=== PATIENT | female | born 1960 | race African-American/Black ===

== ENCOUNTER 2016-10-05 10:15 | Inpatient (IN) | payer MEDICAID ==
[~2016-10-05] VITALS: Ht 165.1 cm; Wt 63.1 kg
--- NOTE | 2016-10-05 10:15 | NUR ---
PT BIB BLS TO OF1.
[2016-10-05 10:18] VITALS: BP 114/68
--- NOTE | 2016-10-05 10:20 | NUR ---
Patient being evaluated by physician.
--- NOTE | 2016-10-05 10:25 | NUR ---
[place] [employer] AT BEDSIDE.
--- NOTE | 2016-10-05 10:26 | NUR ---
Juan Manuel jacques in [facility] - 10/05/16 at 1027 by MEDSANDRAV PT BIB BLS TO OF1.
--- NOTE | 2016-10-05 10:43 | NUR ---
PATIENT TO ER BED 6.
[2016-10-05] MEDS ORDERED: ONDANSETRON 4 MG/2 ML VIAL IVP ONE (10:55)
[2016-10-05] MEDS ORDERED: ACETAMINOPHEN 325 MG TAB PO ONE (10:55)
--- NOTE | 2016-10-05 10:56 | NUR ---
55 /F BIBA FROM FIELD FOR HEADACHE FOUND PARTIALLY CLOTHED ON STREET.PATIENT PT DENIES N/V/D; SKIN IS PINK/WARM/DRY; AAOX4 WITH EVEN AND STEADY GAIT; LUNGS CLEAR BL; HR EVEN AND REGULAR; PT DENIES ANY FEVER, CP, SOB, OR COUGH AT THIS TIME; PATIENT STATES PAIN OF 4/10 AT THIS TIME; VSS; PATIENT POSITIONED FOR COMFORT; HOB ELEVATED; BEDRAILS UP X2; BED DOWN. ER MADE AWARE OF PT STATUS. Addendum: 10/05/16 at 1215 by [email or web address] PT 5150 ON HOLD BY [place]
[2016-10-05] MEDS ORDERED: ACETAMINOPHEN 325 MG TAB ONE (10:59)
--- NOTE | 2016-10-05 11:07 | NUR ---
Juan Manuel jacques in [facility] - 10/05/16 at 1322 by MED1 PT REFUSED IV & MED iv. NOTIFIED ER MD DR VAUGHN.
[2016-10-05] MEDS: NACL 0.9% 1,000 ML IV SCH ×2 (11:27→13:12)
[2016-10-05] MEDS ORDERED: POTASSIUM CHL 40 MEQ/ D5-1/2NS 1,000 ML IV ONE ×2 (13:40→15:40)
[2016-10-05] MEDS ORDERED: NACL 0.9% 1,000 ML IV SCH (15:14)
[2016-10-05] MEDS ORDERED: ONDANSETRON 4 MG/2 ML VIAL IVP PRN (15:15)
[2016-10-05] MEDS ORDERED: POTASSIUM CHLORIDE 10 MEQ TABER PO SCH (15:40)
[2016-10-05] MEDS ORDERED: LEVOFLOXACIN 250 MG/D5 PREMIX 50 ML IV ONE (15:45)
--- NOTE | 2016-10-05 16:00 | NUR ---
CALLED REPORT TO CHARGE NURSE LORENA ICU
[2016-10-05] MEDS ORDERED: NACL 0.9% 1,000 ML IV ONE (16:05)
--- NOTE | 2016-10-05 16:05 | NUR ---
Patient will be admitted to [facility]. Admited to ICU. Will go to room5. Belongings list completed. Report to CHARGE NURSE LORENA.
--- NOTE | 2016-10-05 16:50 | NUR ---
SHE IV ON RT AC INFUSE D5 .45NS WITH 40 MEQ KCL AT 100ML/HR. SHE ON ROOM AIR O2 SAT 96%HER HAND AND FEET IS BRIAN DIRTY, C/O COLD.
--- NOTE | 2016-10-05 16:50 | NUR ---
RECEIVED FROM ER PT IS AWAKE VERBAL ABUSIVE, SKIN DRY AND WARM INTACT I
[2016-10-05 17:00] VITALS: BP 117/67
--- NOTE | 2016-10-05 17:00 | NUR ---
SPONGE BATH GIVEN , WARM BLANKET GIVEN, C/O HUNGRY WATER GIVE ABLE TO DRINK.
[2016-10-05] MEDS ORDERED: QUEtiapine FUMARATE 25 MG TAB ONE (17:14)
--- NOTE | 2016-10-05 17:30 | NUR ---
PT SLEEPING , REPORT GIVE TO ANTWAN KIMBALL.
--- NOTE | 2016-10-05 17:30 | NUR ---
DINNER TOOK ABOUT 40% FROM [facility].
--- NOTE | 2016-10-05 17:30 | NUR ---
SEEN BY DR. CRAIG , PT TO CONTINUE TO ADM . TO PSY FACILLITY.
[2016-10-05] MEDS ORDERED: cefTRIAXone 1,000 MG VIAL ONE (17:52)
[2016-10-05] MEDS: LORazepam 2 MG/ML VIAL IVP PRN (18:06)
--- NOTE | 2016-10-05 18:07 | NUR ---
SHE BECOME AGITATE AND VERBAL ABUSIVE. ATIVAN GIVEN ORDERED.
[2016-10-05 20:00] VITALS: BP 93/56
--- NOTE | 2016-10-05 20:00 | NUR ---
RECEIVED PT IS BEDREST WITH BLANKET COVERED OVER HER HEAD, RESPONDING TO VERBAL , FOLLOW COMMAND , ASKING FOR BEDPAN VOIDED 500 ML, DENIES DISCOMFORT OR PAIN, DINNER TRAY AT BEDSIDE OFFER HELP FOR DINNER, PT REFUSED WANT COFFEE ONLY, COFFEE SERVE CARLOS. WELL NO N/V ,MONITOR SR HR 60, ASKING WARM BLANKET GIVEN REQUEST
[2016-10-05] MEDS ORDERED: ZOLPIDEM 5 MG TAB PO SCH (20:05)
--- NOTE | 2016-10-05 21:05 | NUR ---
K2.7 DR CORDOVA NOTIFIED ,WILL ORDER MEDS. WAITING FOR ORDER.
[2016-10-05] MEDS ORDERED: POTASSIUM CHLORIDE 40 MEQ, LIDOCAINE 1% 25 MG in NACL 0.9% 250 ML IV SCH (21:10)
--- NOTE | 2016-10-05 21:30 | NUR ---
CALLED DR CORDOVA BACK FOR KCL WITH LIDOCAINE UN ABLE TO GIVE TONIGHT , NO PHARMACY MIX MEDICATION ,HAS PREMIX POTASSIUM , SEE ORDER.
[2016-10-05] MEDS ORDERED: KCL 20 MEQ/WATER INJ PREMIX 200 ML IV SCH (21:35)
[2016-10-05 22:00] VITALS: BP 107/74
--- NOTE | 2016-10-05 22:21 | NUR ---
K-RIDER WAS START IT ORDER.
[2016-10-05] MEDS: ACETAMINOPHEN 325 MG TAB PO PRN (23:00)
--- NOTE | 2016-10-05 23:28 | NUR ---
PT IS AWAKE, AGITATION AND UN CO OPERATED PULLED ALL MONITOR EKG LEAD OUT AND IV OUT , K-RIDER IS NOT FINISH , PT REFUSED TO PUT IV BACK , DR CORDOVA NOTIFIED
[2016-10-05] MEDS ORDERED: POTASSIUM CHLORIDE 10 MEQ TABER PO ONE (23:30)
--- NOTE | 2016-10-05 23:45 | NUR ---
TOOK 40 MEQ K-DUR , STILL UN CO OPERATED
--- NOTE | 2016-10-06 00:25 | NUR ---
PT HAD MOOD SWING , SOMETIME GOOD MOOD WITH REQUEST THING SHE WANT IT, HAD BAD WORD AND HIT NURSE IF SHE DO NOT WANT IT AFTER TYLENOL SLEPT WITH LININ COVER HER HEAD,STILL REFUSED IV AND MONITOR.
--- NOTE | 2016-10-06 01:20 | NUR ---
VERY AGITATION AND RESTLESS, PULL ALL LINEN OUT AND GET OUT OF THE BED ,SECURITY AND SUPERVISOR ANODIZING IS AT BEDSIDE , PT WALKED AROUND THE BED UN ABLE INSERT IV FOR MEDS , DR CORDOVA NOTIFIED , WILL CHANGE MEDS TO IM
[2016-10-06] MEDS: LORazepam 2 MG/ML VIAL IVP PRN (01:43)
--- NOTE | 2016-10-06 01:45 | NUR ---
AFTER DISCUSSION WITH DR CORDOVA PT REFUSED IV AND UN ABLE GIVE MEDS VIA IV , SHE WILL CHANGE TO IM, SEE ORDER,
[2016-10-06] MEDS: LORazepam 2 MG/ML VIAL IM/IVP PRN ×2 (03:06→19:54)
--- NOTE | 2016-10-06 04:00 | NUR ---
AFTER MEDICATION SLEPT 1.40 MIN ,AWAKE , OUT OF THE BED , URINE ON THE FLOOR, ASSISTED AND CLEAR HER , HELP BACK TO THE BED, C/O HEADACHE .WANT TYLENOL
[2016-10-06] MEDS: ACETAMINOPHEN 325 MG TAB PO PRN ×3 (04:13→21:23)
--- NOTE | 2016-10-06 04:15 | NUR ---
TYLENOL GIVEN FOR HEADACHE
--- NOTE | 2016-10-06 04:40 | NUR ---
OUT OF THE BED AGAIN , HAD BM ON THE FLOOR, PT IS ASKING FOR SHOWER, SHE REMOVED SHEET BED EVERY THING THROUGH ON THE FLOOR THIS TIME # 5 FOR TONIGHT, HELP PT BACK TO THE BED , GIVE COMPLETE SPONGE BATH , ALL BED LINEN CHANGE AGAIN, WARM BLANKET GIVEN
[2016-10-06] MEDS: MORPHINE SULFATE 2 MG/ML SYR IVP PRN ×2 (04:50→15:57)
[2016-10-06] MEDS ORDERED: KETOROLAC 30 MG/ML VIAL IM PRN (05:55)
--- NOTE | 2016-10-06 06:02 | NUR ---
CHANGE POSITION BY HERSELF, LININ COVERED OVER HEAD AND RESTING QUIET NO DISTRESS
--- NOTE | 2016-10-06 06:19 | NUR ---
X-RAY WAS HERE WANT TO DO CHEST X-RAY, PT REFUSED
--- NOTE | 2016-10-06 06:25 | NUR ---
AWAKE AND REPOSITION , SHE PUT HER 1 DOLLAR BILL IN HER VAGINA AREA, ASKING PT WHY SHE PUT HER MONEY IN THERE, SHE TOLD SHE DID NOT HAD POCKET
--- NOTE | 2016-10-06 06:50 | NUR ---
AWAKE VOIDED IN THE BED , GET OUT OF THE BED ,REMOVED ALL LINEN THROUGH TO THE FLOOR AGAIN, ALL BED LINEN CHANGE AGAIN.HELP BACK TO THE BED AND RESTING NOW.
--- NOTE | 2016-10-06 07:30 | NUR ---
RECEIVED REPORT FROM ANTWAN RN, PT. SLEEPING AT THE TIME. SHE HAS NO IV ACCESS AT THE TIME, SKIN DRY AND WARM TO TOUCH, ON ROOM AIR . SHE PULL OUT ALL MONITOR LEAD AND O2 SENSOR REFUSE TO HAVE BP CLUB ON.
[2016-10-06] MEDS ORDERED: LORazepam 1 MG TAB PO SCH (08:40)
--- NOTE | 2016-10-06 08:45 | NUR ---
REFUSED BREAKFAST BUT DRINK 3 CUPS OF COFFEE AN MILK REFUSE TO HAVE IV RESTARTED.
[2016-10-06] MEDS ORDERED: QUEtiapine FUMARATE 25 MG TAB PO SCH (09:00)
[2016-10-06 09:27] VITALS: BP 118/74
--- NOTE | 2016-10-06 09:45 | NUR ---
PULL OUT HER WRIST BAND REFUSE IV RESTART AND BLOOD DROWN.
--- NOTE | 2016-10-06 10:20 | NUR ---
ADDITIONAL MEDICAL FAX TO DELANEY AT [facility] IN [place]
[2016-10-06] MEDS ORDERED: ZIPRASIDONE 40 MG CAP PO PRN (10:40)
--- NOTE | 2016-10-06 10:45 | NUR ---
SEEN BY DR. CORDOVA AT BEDSIDE ORDER RECEIVED.
[2016-10-06] MEDS ORDERED: risperiDONE 1 MG TAB PO PRN (11:10)
--- NOTE | 2016-10-06 13:20 | NUR ---
PT. GETTING RESTLESS GET UP CHIEF COMPLIANCE OFFICER BED ANO UNDRESS HER SELF REMOVEED ALL HER BED SHEET, MEDICATION GAVE IT ORDERED.
--- NOTE | 2016-10-06 13:34 | NUR ---
PT SLEEPING IN BED QUIETLY,
[2016-10-06] MEDS ORDERED: LORazepam 1 MG TAB PO PRN (15:15)
[2016-10-06] MEDS: LORazepam 1 MG TAB PO PRN (15:30)
--- NOTE | 2016-10-06 15:30 | NUR ---
PT AGITATED YELLING AND SCREAMING GETTING OUT OF BED ATTIVAN 1MG PO GIVEN ORDERED
--- NOTE | 2016-10-06 15:40 | NUR ---
PT. CONTINUE BEING AGGRESSIVE VERBALLY AND PHYSICALLY HOUSE SUPP AND SECURITY AT BEDSIDE, MATILDA SIDDIQUI WAS CALLED SOFT WRIST RESTRAIN WAS ORDERED IF NEEDED PT. CALM DOWN AND RESTRAIN WAS HOLD.
--- NOTE | 2016-10-06 15:57 | NUR ---
[PT RESTLESS AND AGITATED UNDRESS HER SELF TRY TO PULL OUT THE IV, MEDICATION GIVEN ORDERE.
--- NOTE | 2016-10-06 16:00 | NUR ---
ABLE TO STARTED THE IV ON RT HAND AND IV MED. GIVEN,
--- NOTE | 2016-10-06 18:00 | NUR ---
PT REFUSED TO THE EKG LEAD AND BP CLUB ,
--- NOTE | 2016-10-06 19:15 | NUR ---
PT SLEEPING . REPORT GIVE TO ANTWAN KIMBALL,
--- NOTE | 2016-10-06 19:45 | NUR ---
RECEIVED PT WALKED AROUND HER BED WITHOUT GROWN , AGITATION TRY TO PULL SALINE LOCH RT ARM , ASKING COFFEE , TOLD PT , DO NOT REMOVED NEEDLE OUT ,I WILL RE TAPE AFTER I WILL GIVE YOU COFFEE, PT IS AGREE , HELP BACK TO THE BED , HAD GROWN ON, WILL GIVE ATIVAN ORDER.MONITOR APPLIED ONCE THEN SHE REMOVED IT OUT, MONITOR SHOW SR HR 78 ,BP129/82,
--- NOTE | 2016-10-06 20:18 | NUR ---
RESTING QUIET AFTER ATIVAN GIVEN.
[2016-10-06 20:35] VITALS: BP 129/82
--- NOTE | 2016-10-06 21:47 | NUR ---
ASSISTED TO BED SIDE COMMODE VOIDED 500 ML, ASKING FOR COFFEE AGAIN SERVE NEED, C/O HEADACHE , TYLENOL GIVEN
--- NOTE | 2016-10-06 22:01 | NUR ---
AGITATION, REFUSED MONITOR REMOVED SALINE LOCK, ASKING FOR BLANKET COVER AGAIN
[2016-10-07] MEDS: LORazepam 1 MG TAB PO PRN ×3 (00:24→15:40)
--- NOTE | 2016-10-07 01:00 | NUR ---
AWAKE , ASKING HELP FOR REPOSITION FOR BED AND BLANKET, SLIGHT RESTLESS, ASKING HOW THEY WILL HOLD HER, ATIVAN PO GIVEN
--- NOTE | 2016-10-07 03:00 | NUR ---
WET BED ,COMPLETE GIVEN, AFTER BATH ASKIN FOR TYLENOL C/O HEADACHE, ALL BED LINEN CHANGE. NO DISTRESS
[2016-10-07] MEDS: ACETAMINOPHEN 325 MG TAB PO PRN (03:10)
[2016-10-07 05:29] VITALS: BP 105/64
--- NOTE | 2016-10-07 05:37 | NUR ---
WET IN THE BED, COMPLETE BED CLEAN AND AM CARE GIVEN, ASKING FOR COFFEE AGAIN.
[2016-10-07] MEDS: LORazepam 2 MG/ML VIAL IM/IVP PRN (05:57)
--- NOTE | 2016-10-07 06:00 | NUR ---
GET OUT OF THE BED LOOK FOR PANT, SHIRT , SHE WANT TO GO HOME, AGITATION AND RESTLESS, ATIVAN IM GIVEN ORDER. HELP BACK TO THE BED, COFFEE SERVE AGAIN RESTING IN THE BED NOW
--- NOTE | 2016-10-07 07:00 | NUR ---
RECEIVED REPORT FROM RN. PT IS ALERT TO HOSPITAL. AGITATION AND COMBATIVENESS NOTED. STATED "I WANT TO GO HOME". PT WAS CALMER AFTER COFFEE WAS GIVEN PER REQUEST. WILL CONTINUE TO MONITOR.
--- NOTE | 2016-10-07 07:45 | NUR ---
DR. CHANG AT BEDSIDE TO SEE PT. NOTIFIED OF PT'S CURRENT CONDITION AND NO IV ACCESS. STATED THAT IT IS FINE FOR NOW AND WILL CHANGE ORDERS ACCORDINGLY.
--- NOTE | 2016-10-07 07:50 | NUR ---
PATIENT HAS BEEN SCREENED AND CATEGORIZED LOW NUTRITION RISK. PATIENT WILL BE SEEN WITHIN 7 DAYS OF ADMISSION. 10/12/[address]
[2016-10-07 08:00] VITALS: BP 121/71
--- NOTE | 2016-10-07 08:00 | NUR ---
PT REFUSED VITAL SIGNS AND PHYSICAL ASSESSMENT. REFUSED X3. STATED "LEAVE ME ALONE, I'M FINE". BECAME AGITATED AND COMBATIVE. MOOD IS CALM WHEN LEFT IN BED. MD AWARE OF CONDITION. ASSISTED PT TO COMMODE X1. URINE IS CLEAR, YELLOW. DENIES ANY PAIN. WILL CONTINUE TO MONITOR
[2016-10-07] MEDS: LEVOFLOXACIN 250 MG TAB PO SCH (08:27)
[2016-10-07] MEDS: QUEtiapine FUMARATE 100 MG TAB PO SCH ×2 (08:28→20:30)
[2016-10-07] MEDS: HYDROcodone/APAP 5/325 MG 1 TAB TAB PO PRN ×2 (08:30→20:30)
--- NOTE | 2016-10-07 08:30 | NUR ---
PT C/O 12/23 HEADACHE. PRN PAIN MEDICATION ORDERED. WILL CONTINUE TO MONITOR Addendum: 10/07/16 at 1103 by Ramakrishna Lees RN C/O 09/23 HEADACHE
--- NOTE | 2016-10-07 09:00 | NUR ---
AT 0830, PT REMOVE BLANKET AND GOWN AND THREW IT ON THE FLOOR. REFUSED TO WEAR GOWN. STATED "I WANT A SHIRT AND PANTS". LOUD VERBALIZATION AND AGITATION NOTED. 1:1 COMMUNICATION PROVIDED. PRN ANTI ANXIETY MEDICATION PROVIDED. DRESSED PT IN GOWN ONCE PT WAS CALM. PT RESTING COMFORTABLY IN BED.
--- NOTE | 2016-10-07 09:45 | NUR ---
PT ROLLED UP A DOLLAR BILL AND INSERTED IT INTO HER VAGINA. ATTEMPT MADE TO PREVENT THAT. ATTEMPT MADE TO EDUCATE PT ON REASONS WHY SHE SHOULD NOT DO THAT. PT BECAME ANGRY AND STATED "IT'S SO I DON'T LOSE IT". WILL CONTINUE TO MONITOR
--- NOTE | 2016-10-07 10:52 | NUR ---
PT SLEEPING COMFORTABLY IN BED. WILL CONTINUE TO MONITOR FOR CHANGE
--- NOTE | 2016-10-07 12:34 | NUR ---
PT REMOVED GOWN AND REMAIN NAKED IN BED. NOTED TO HAVE A WET STEWART AND WET GOWN. TONY CARE PROVIDED. LINEN AND GOWN CHANGED. RESIDENT CONTINUE TO REFUSE HELP WITH GOWN. AT THE MOMENT IS NAKED AND EATING LUNCH.
--- NOTE | 2016-10-07 12:47 | NUR ---
SS NOTE: SENT PT INFORMATION TO [facility], RECEIVED FAX CONFIRMATION
--- NOTE | 2016-10-07 13:00 | NUR ---
SS NOTE: I SPOKE WITH VALERI FROM [place]. SHE STATED THAT PT IS A MISSING PERSON AND A FACILITY THAT SHE LEFT REPORTED HER MISSING BUT THE REPORT DOES NOT SAY WHICH FACILITY. SHE ALSO STATED THAT THEY WILL SEND AN OFFICER TO SEE PT.
--- NOTE | 2016-10-07 14:22 | NUR ---
SS NOTE: RIANNA FLORES FROM [facility], PT'S INFORMATION IS PENDING REVIEW BUT THEY ARE FULL FOR TODAY. Addendum: 10/07/16 at 1705 by Katelynn HERRERA [facility] - [phone]
--- NOTE | 2016-10-07 15:24 | NUR ---
FAXED TO [facility] [phone] PHONE PAULIE [phone]
[2016-10-07] MEDS ORDERED: PROBIOTIC SCREEN 1 EA MISC MC PRN (15:25)
--- NOTE | 2016-10-07 15:35 | NUR ---
SS NOTE: I SPOKE WITH OFFICER KHURRAM FROM [employer]. HE STATED THAT PT WAS A MISSING PERSON BUT SINCE SHE HAS BEEN LOCATED, THEY WILL REMOVE HER FROM THE SYSTEM.
--- NOTE | 2016-10-07 15:45 | NUR ---
INCONTINENT OF URINE. AGITATED. TOOK HOSPITAL GOWN OFF. THREW CHUX ON THE FLOOR. LINENS AND HOSPITAL GOWN CHANGED . REPORT GIVEN TO JIGAR PANDYA.
--- NOTE | 2016-10-07 15:50 | NUR ---
TRANSFERRED TO AR ROOM 110 B PER BED. PT IS AWAKE. CALM AT THIS TIME.
--- NOTE | 2016-10-07 15:53 | NUR ---
SS NOTE: I SPOKE WITH THERAPIST ENA FROM [facility] (PT'S PREVIOUS RESIDENCE). HE STATED THAT PT WENT AWOL FROM THEIR FACILITY ALMOST 4 WEEKS AGO. HE ALSO STATED THAT PT IS CONSERVED WITH THE [facility] OFFICE OF PUBLIC GUARDIAN AND MARIAN RAMIREZ ([phone]) IS HIS PUBLIC GUARDIAN. HE REPORTED THAT WE WOULD HAVE TO FIRST OBTAIN AN AUTHORIZATION TO DETAIL AND TREAT FROM PT'S CONSERVATOR AND THEN CALL [facility] INPT PSYCH UNIT TO SEE IF PT CAN BE TRANSFERRED THERE. I REQUESTED THAT HE SENDS A COPY OF PT'S CONSERVATORSHIP PAPERWORK WELL ADDITIONAL INFORMATION REGARDING PT WHEN SHE WAS AT THEIR FACILITY. REQUESTED INFORMATION RECEIVED, A COPY WAS PLACED IN PT'S CHART. I SPOKE WITH CRANE OILER FOR THE [facility] PUBLIC GUARDIAN'S OFFICE, CIRA. HE STATED THAT PT'S NAME IS CL RIVERA BUT GOES BY CL DANIELS. HE ALSO STATED THAT HE CAN SEND OVER AN AUTHORIZATION TO DETAIN AND TREAT SO THAT WE CAN START THE PROCESS FOR [facility]. RECEIVED AUTH FOR DETAIL AND TREAT FORM FROM THE [facility] OFFICE OF PUBLIC GUARDIAN.
--- NOTE | 2016-10-07 15:56 | NUR ---
SS NOTE: I SPOKE WITH A REHABILITATION SERVICES COUNSELOR FROM [facility]. SHE STATED THAT THEY ONLY ACCEPT PSYCH PTS THROUGH THEIR EMERGENCY ROOM AND DO NOT ACCEPT DIRECT TRANSFERS.
[2016-10-07 16:00] VITALS: BP 128/71
--- NOTE | 2016-10-07 16:00 | NUR ---
PT ARRIVED TO UNIT. SHE IS RESTING IN BED, CLEAN GOWN AND WARM BLANKET WAS PROVIDED. Addendum: 10/07/16 at 1910 by Radha Merida RN PT IS A/OX1, RESTING IN BED, SKIN IS INTACT, NO S/S OF RESPIRATORY DISTRESS OR DISCOMFORT NOTED, ORIENTED PT TO ROOM, DISCUSSED PLAN OF CARE WITH PT, PT UNABLE TO COMPREHEND, CALL LIGHT IS WITHIN REACH, WILL CONTINUE TO MONITOR.
[2016-10-07] MEDS ORDERED: QUETIAPINE FUM100 M1 PO (16:32)
[2016-10-07] MEDS ORDERED: LEVAQUIN250 M1 PO (16:34)
[2016-10-07] MEDS ORDERED: MAGNESIUM OXIDE 400 MG TAB PO SCH (17:00)
--- NOTE | 2016-10-07 17:37 | NUR ---
INFORMED PT THERE WAS A MEDICATION SCHEDULED FOR HER DUE AT THIS TIME, I LET HER KNOW HER MG LEVEL WAS LOW AND DOCTOR HAD PRESCRIBED HER MG, ORAL TABLET, PT REFUSED AND STATED, "LEAVE ME ALONE, DONT WANT ANYTHING."
--- NOTE | 2016-10-07 17:49 | NUR ---
PT REMOVED CHUCKS PAD, GOWN, BRIEF AND VOIDED IN HER BED, ACCOMPANIED PT TO RESTROOM, CHANGED SHEETS, PROVIDED A NEW STEWART FOR BED, BLANKETS AND PROVIDED A NEW CLEAN GOWN, ASSISTED PT BACK INTO BED.
--- NOTE | 2016-10-07 19:11 | NUR ---
ENDORSED PT TO JIGAR DRAKE. FOR CONTINUITY OF CARE, LILIAN HICKS IS SITTING AT PT BEDSIDE, PT STABLE AT THIS TIME.
--- NOTE | 2016-10-07 19:20 | NUR ---
RECEIVED FROM AM RN IN BED SLEEPING. WITH SITTER IN PLACE. NO SOB. NO RESTLESSNESS NOTED. PT. 51:50. NEEDS WILL BE ANTICIPATED AND WILL BE MET.
--- NOTE | 2016-10-07 20:40 | NUR ---
PT. REQUESTED FOR PAIN RELIEVER. ON TOP OF HER VOICE SAYING I NEED SOMETHING FOR PAIN. MEDICATED REQUESTED. STATED HER HEAD HURTS . PROVIDED WITH SNACK. ATE SNACKS AND DRANK JUICE. REDUSED TO HAVE NEW IVF LINE INSERTED.
--- NOTE | 2016-10-07 22:48 | NUR ---
PT. WALKING AROUND THE ROOM AND TAKING ALL HER CLOTHES OFF. ENCOURAGED TO GO BACK TO BED AND SLEEP. PT. STATED I AM NOT SLEEPY AND WANTS TO SMOKE. INFORMED HER THAT WE ARE NOT ALLOWED TO MAKE PT.S SMOKE. PT. PICKING UP THING SFROM FLOOR AND TROWING IT BACK ON THE FLOOR. WALKING AROUND HER ROOM NAKED. WILL KEEP AN EYE. 1:1 SITTER.
[2016-10-07 23:27] VITALS: BP 129/60
--- NOTE | 2016-10-07 23:49 | NUR ---
PT. PROVIDED WITH NEW GOWN AND WARM BLANKET. PT. BACK IN BED AND TRYING TO SLEEP. SITTER 1:1.
--- NOTE | 2016-10-08 02:00 | NUR ---
PT. SLEEPING. SITTER 1:1.
--- NOTE | 2016-10-08 04:07 | NUR ---
BEEN SLEEPING . SITTER 1:1. NEEDS ANTICIPATED AND WILL BE MET.
[2016-10-08] MEDS: LEVOTHYROXINE 0.025 MG TAB PO SCH (06:04)
--- NOTE | 2016-10-08 06:40 | NUR ---
AWAKE AT THIS TIME. ABLE TO TAKE AM MEDICATION. TOLERATED WELL. PROVIDED WITH COFFEE REQUESTED BY PT. WITH 1:1 SITTER.
--- NOTE | 2016-10-08 07:30 | NUR ---
RECEIVED REPORT FROM NIGHT NURSE. PT RESTING IN BED, AOX4, ABLE TO VERBALIZE NEEDS. NO IV ACCESS, MD AWARE. INITIAL ASSESSMENT COMPLETED. NO CP, SOB OR ACUTE DISTRESS. PT DENIES SUICIDAL/HOMICIDAL IDEATIONS. 1:1 SITTER AT BEDSIDE WITH CLOSE MONITORING. SAFETY MEASURES IN PLACE. CALL LIGHT WITHIN REACH. WILL CONTINUE TO MONITOR. DISCUSSED AND REVIEWED PLAN OF CARE WITH PT, PT VERBALIZES UNDERSTANDING.
[2016-10-08 08:00] VITALS: BP 105/64
[2016-10-08] MEDS: LITHIUM CARBONATE 300 MG TAB PO SCH ×2 (08:28→21:09)
[2016-10-08] MEDS: risperiDONE 1 MG TAB PO SCH ×2 (08:28→21:09)
[2016-10-08] MEDS: QUEtiapine FUMARATE 100 MG TAB PO SCH ×2 (08:29→21:09)
[2016-10-08] MEDS: ATORVASTATIN 20 MG TAB PO SCH (08:29)
[2016-10-08] MEDS: LEVOFLOXACIN 250 MG TAB PO SCH (08:30)
[2016-10-08] MEDS: GABAPENTIN 100 MG CAP PO SCH ×3 (08:30→16:40)
--- NOTE | 2016-10-08 08:34 | NUR ---
VSS. ADMINISTERED DUE MEDICATIONS ORDERED WITH EDUCATION, PT TOLERATED WELL. ASSISTED WITH AM CARE, LINEN & GOWN CHANGED. DISCUSSED DC PLAN WITH PT, PT STATES "OKAY"; WILL REINFORCE TEACHING NEEDED; PT RESTING QUIETLY IN BED AT THIS TIME, 1:1 SITTER AT BEDSIDE.
--- NOTE | 2016-10-08 10:28 | NUR ---
CALLED [facility] AND SPOKE WITH EMANUEL. NO BEDS AT PRESENT.
--- NOTE | 2016-10-08 12:23 | NUR ---
NOTE: FAXED PUBLIC GUARDIAN INFO TO [phone] (MARK) Addendum: 10/08/16 at 1226 by Pauline Em FAXED PUBLIC GUARDIAN INFO TO [facility] [phone] (MARK)
--- NOTE | 2016-10-08 12:25 | NUR ---
CM NOTE CONCURRENT REVIEW SENT TO [facility] FAX# [phone] PH# PAULIE [phone]
[2016-10-08] MEDS: ACETAMINOPHEN 325 MG TAB PO PRN (12:39)
[2016-10-08 16:00] VITALS: BP 105/74
--- NOTE | 2016-10-08 16:00 | NUR ---
PT SLEEPING AT THIS TIME. 1:1 SITTER WITH CLOSE MONITORING. SAFETY MEASURES ENSURED. WILL CONTINUE TO MONITOR.
--- NOTE | 2016-10-08 19:25 | NUR ---
CONDITION STABLE, ENDORSED PLAN OF CARE TO FORM SETTER RN.
--- NOTE | 2016-10-08 19:26 | NUR ---
PT. RECEIVED FROM AM RN IN BED SLEEPING. WAKES UP WHEN TOUCHED. SITTER 1;1. ABLE TO VERBALIZE NEEDS IN ITALIAN WELL. NO SOB. NO RESTLESSNESS NOTED. NO PAIN COMPLAINTS AT THIS TIME. NEEDS WILL BE ANTICIPATED AND WILL BE MET. DX. OF PSYCHOSIS.
--- NOTE | 2016-10-08 23:04 | NUR ---
SLEEPING. SITTER 1:1. P.O. MEDICATIONS TAKEN AND PROVIDED WITH SNACK .
[2016-10-09 00:01] VITALS: BP 105/76
[2016-10-09] MEDS: ACETAMINOPHEN 325 MG TAB PO PRN ×3 (00:45→16:44)
--- NOTE | 2016-10-09 01:43 | NUR ---
AWAKE AND WATCHING TV. REFUSED TO GO BACK TO BED. "I AM NOT A BABY". WITH 1:1 SITTER.
--- NOTE | 2016-10-09 03:56 | NUR ---
PT. WENT BACK TO SLEEP. SITTER 1:1.
[2016-10-09] MEDS: LEVOTHYROXINE 0.025 MG TAB PO SCH (05:37)
--- NOTE | 2016-10-09 07:24 | NUR ---
PT. AWAKE AND ALERT. SITTER 1:1 AND ENDORSED TO THE NEXT RN FOR CONTINUITY OF CARE. PROVIDED WITH COFFEE REQUESTED. ABLE TO VERBALIZE SIMPLE NEEDS WELL.
[2016-10-09 08:00] VITALS: BP 101/66
[2016-10-09] MEDS: GABAPENTIN 100 MG CAP PO SCH ×3 (08:32→16:44)
[2016-10-09] MEDS: ATORVASTATIN 20 MG TAB PO SCH (08:32)
[2016-10-09] MEDS: LEVOFLOXACIN 250 MG TAB PO SCH (08:34)
[2016-10-09] MEDS: QUEtiapine FUMARATE 100 MG TAB PO SCH ×2 (08:35→20:49)
[2016-10-09] MEDS: LITHIUM CARBONATE 300 MG TAB PO SCH ×2 (08:35→20:50)
[2016-10-09] MEDS: risperiDONE 1 MG TAB PO SCH ×2 (08:35→20:50)
--- NOTE | 2016-10-09 08:38 | NUR ---
DUE MEDS GIVEN, PT TOLERATED WELL. STILL ON 1:1 SITTER FOR SAFETY. PT WATCHING TV.
--- NOTE | 2016-10-09 09:33 | NUR ---
RECEIVED PT AWAKE AND ON HER BED, NO S/S OF RESPIRATORY DISTRESS, PT CONFUSED BUT ABLE TO VERBALIZED NEEDS WELL. SKIN IS INTACT, NO IV ACCESS. ON 1:1 SITTER FOR SAFETY. CALL LIGHT WITHIN REACH, WILL CONTINUE TO MONITOR. Addendum: 10/09/16 at 0933 by Stella Ramires RN WRONG TIME, RECEIVED PT AT 0725
--- NOTE | 2016-10-09 10:26 | NUR ---
SS NOTE: MESSAGE LEFT FOR PT'S PUBLIC GUARDIANMARIAN REGARDING PSYCH PLACEMENT FOR PT
--- NOTE | 2016-10-09 11:25 | NUR ---
PT AWAKE SITTING QUIETLY ON BED WATCHING TV. STILL ON 1:1 SITTER. WILL CONTINUE TO MONITOR
--- NOTE | 2016-10-09 13:14 | NUR ---
SS NOTE: RIANNA CASTELLANOS FROM [facility], NO FEMALE BEDS AVAILABLE
--- NOTE | 2016-10-09 13:29 | NUR ---
SS NOTE: I SPOKE WITH PT'S PUBLIC GUARDIAN, MARIAN REGARDING PSYCH PLACEMENT FOR PT. SHE STATED THAT SHE WILL VERIFY WITH HER [employer] SALES CONSULTANT AND ALSO WITH PT'S PREVIOUS RESIDENCE ([facility]) THEN CALL ME BACK.
--- NOTE | 2016-10-09 13:59 | NUR ---
PT ASLEEP, NO S/S OF DISTRESS. STILL ON 1:1 SITTER, ALL NEEDS ATTENDED. WILL CONTINUE TO MONITOR
--- NOTE | 2016-10-09 14:01 | NUR ---
FAXED CONCURRENT REVIEW TO [facility] [phone] PHONE PAULIE [phone]
--- NOTE | 2016-10-09 15:10 | NUR ---
SS NOTE: I RECEIVED A CALL BACK FROM PT'S PUBLIC GUARDIAN, MARIAN. SHE STATED THAT SHE SPOKE WITH [facility] (PT'S PREVIOUS RESIDENCE BEFORE GOING AW) AND THEY ARE UNABLE TO ACCEPT PT BACK AT THIS TIME DUE TO PT REQUIRING STABILIZATION ON MEDICATION. SHE ALSO STATED THAT PT HAS BEEN TO [facility] (C: [phone], F: [phone]) AND [facility] (C: [phone], F: [phone]) BEFORE AND TO TRY THOSE FACILITIES. SENT PSYCH PLACEMENT INQUIRIES TO [facility] AND [facility], RECEIVED FAX CONFIRMATION
--- NOTE | 2016-10-09 15:57 | NUR ---
PT ABLE TO AMBULATE AROUND THE ROOM, NO COMPLAINTS AT THIS TIME. WILL CONTINUE TO MONITOR. STILL WITH 1:1 SITTER
[2016-10-09 16:00] VITALS: BP 104/71
--- NOTE | 2016-10-09 17:55 | NUR ---
PT AWAKE EATING DINNER, HAS GOOD APPETITE. STILL ON 1:1 SITTER, CALL LIGHT WITHIN REACH, WILL CONTINUE TO MONITOR
--- NOTE | 2016-10-09 19:22 | NUR ---
RECEIVED REPORT FROM DAY SHIFT NURSE. PT IS AWAKE, NOT IN DISTRESS. ON ROOM AIR, NO S/S OF RESPIRATORY DISTRESS/DISCOMFORT NOTED. PLAN OF CARE DISCUSSED, VERBALIZED UNDERSTANDING. SAFETY MEASURES CHECKED, CALL LIGHT WITH REACH. WILL CONTINUE TO MONITOR.
--- NOTE | 2016-10-09 19:22 | NUR ---
ENDORSED PT TO JIGAR DAO FOR CONTINUITY OF CARE IN STABLE CONDITION
--- NOTE | 2016-10-09 20:50 | NUR ---
DUE MEDS GIVEN. PT TOLERATED WELL.
--- NOTE | 2016-10-09 22:33 | NUR ---
ENDORSED REPORT TO BIPIN FOR CONTINUITY OF CARE. PT IS SLEEPING AT THIS TIME.
--- NOTE | 2016-10-09 22:34 | NUR ---
RECD. PATIENT RESTING IN BED, AWAKE, A/OX1. LAUGHING ALONE, CLOSED EYES IF SLEEPING, THEN WOKE UP AND DRINK COFFEE IN THE BEDSIDE TABLE. ANSWERS QUESTIONS DIFFERENTLY FROM THE TOPIC. DENIES PAIN 0/10. INTRODUCED SELF TO PATIENT NEW NURSE AND NEW SITTER. SEEMS NOT TO MIND. NO APPEARANCE OF PAIN NOTED 0/10. WILL CONTINUE TO MONITOR PATIENT'S BEHAVIOR.
--- NOTE | 2016-10-09 22:51 | NUR ---
AMBULATED TO BR TO VOID, SINGS AND TALK LOUDLY WHILE ENTERING BR. GOES TO THE BEDSIDE CABINET AND THROW HER TOOTHBRUSH, TOOTH PASTE AND CLEANSER TO THE TRASH. ADVISED TO GO BACK TO BED AND SLEEP.
--- NOTE | 2016-10-09 23:00 | NUR ---
WENT BACK TO BED AND COVER SELF FROM HEAD TO FOOT WITH BLANKET.
[2016-10-10] VITALS: BP 116/80
--- NOTE | 2016-10-10 01:30 | NUR ---
WOKE UP, AMBULATED TO BR TO VOID. REQUESTED FOR COFFEE . GETS UPSET WHEN INSTRUCTED TO PUT CREAMER AND SUGAR. WASHED FACE IN THE SINK, DRY FACE WITH PAPER TOWEL. REQUESTED LOTION FOR HER HAIR. WENT BACK TO BED AND KEEP ON TALKING TO SELF THEN WATCHED TV.
--- NOTE | 2016-10-10 02:30 | NUR ---
REQUESTED FOR BEDPAN, VOIDED APPROXIMATELY 300 ML OF CLEAR YELLOW URINE.
--- NOTE | 2016-10-10 03:00 | NUR ---
STILL AWAKE, WATCHING TV. TALKING TO SELF, SOMETIMES CLAPPING HANDS.
--- NOTE | 2016-10-10 04:00 | NUR ---
SLEEPING COMFORTABLY IN BED.
--- NOTE | 2016-10-10 05:25 | NUR ---
AWAKE IN BED, WATCHING TV.
--- NOTE | 2016-10-10 05:30 | NUR ---
REFUSED NEW IV INSERTION.
[2016-10-10] MEDS: LEVOTHYROXINE 0.025 MG TAB PO SCH (07:25)
--- NOTE | 2016-10-10 07:30 | NUR ---
CONDITION REMAIN STABLE, NO COMBATIVE BEHAVIOR/AGITATION NOTED DURING SHIFT. NEW SITTER AT THE BEDSIDE. ENDORSED TO JIGAR VELIZ FOR CONTINUITY OF CARE.
--- NOTE | 2016-10-10 07:31 | NUR ---
RECEIVED ON BED AAO WITH PERIODS OF CONFUSION. PLEASANT AND CALM. NO SOB NOTED. NO C/O PAIN AT THIS TIME. PT REFUSED IV, DR ALREADY AWARE. CHEST CLEAR. ABDOMEN SOFT, BOWLE SOUNDS PRESENT. NO EDEMA NOTED. INSTRUCTED PT TO CALL FOR ASSISTANCE, CALL LIGHT WITHIN REACH. PT IS ON 5150 HOLD, WITH 1:1 SITTER AT THE BEDSIDE. WILL CONTINUE TO MONITOR PT'S BEHAVIOR.
--- NOTE | 2016-10-10 08:15 | NUR ---
PT REFUSED VITAL SIGNS TAKEN. PT THROWING THINGS FROM THE BEDSIDE TABLE, STATED TO THE NURSE TO GET OUT OF THE ROOM. NO SIGNS OF PAIN. WILL CONTINUE TO MONITOR.
[2016-10-10] MEDS: GABAPENTIN 100 MG CAP PO SCH ×3 (09:00→17:00)
[2016-10-10 09:15] VITALS: BP 118/80
--- NOTE | 2016-10-10 09:17 | NUR ---
PT ON A GOOD MOOD, LAUGHING WHILE WATCHING TV. ALLOWED RN TO TAKE VITAL SIGNS . NO COMPLAINTS MADE.
--- NOTE | 2016-10-10 09:45 | NUR ---
PT REFUSED SCHEDULED MEDS, STATED TO THE NURSE TO GO AWAY. RISKS AND BENEFITS EXPLAINED TO PT, VERBALIZED PARTIAL UNDERSTANDING. WILL CONTINUE TO MONITOR.
--- NOTE | 2016-10-10 13:28 | NUR ---
SS NOTE: I SPOKE WITH PT'S FORMER THERAPIST, ENA PALACIO ([phone] EXT. [phone]) FROM [facility] REGARDING CHALLENGES WITH PLACEMENT FOR PT. HE STATED THAT HE WILL CONTACT [facility], LORIN WU TO SEE IF SHE CAN PROVIDE ANY ASSISTANCE WITH PLACEMENT FOR PT.
[2016-10-10] MEDS: risperiDONE 1 MG TAB PO SCH ×2 (13:59→20:50)
[2016-10-10] MEDS: QUEtiapine FUMARATE 100 MG TAB PO SCH ×2 (13:59→20:49)
[2016-10-10] MEDS: LITHIUM CARBONATE 300 MG TAB PO SCH ×2 (13:59→20:49)
[2016-10-10] MEDS: ATORVASTATIN 20 MG TAB PO SCH (13:59)
[2016-10-10] MEDS: LEVOFLOXACIN 250 MG TAB PO SCH (14:00)
[2016-10-10] MEDS ORDERED: FERROUS GLUCONATE 324 MG TAB PO SCH ×2 (14:20→15:00)
--- NOTE | 2016-10-10 15:23 | NUR ---
SS NOTE: I SPOKE WITH JESSE IN THE PSYCH ER FOR [facility] ([phone]). HE STATED THAT THE ADMISSION PROCESS STARTS IN THEIR ER AND PT WOULD HAVE TO COME TO THEIR ER TO BE EVALUATED. HE ALSO STATED THAT THEY DO NOT ACCEPT DIRECT ADMITS FROM OTHER HOSPITALS AND THEIR PTS USUALLY GET BROUGHT IN BY PD OR THEIR LOCAL PSYCHIATRIC EMERGENCY TEAM.
[2016-10-10 16:00] VITALS: BP 102/57
[2016-10-10] MEDS: ASCORBIC ACID 500 MG TAB PO SCH (17:00)
--- NOTE | 2016-10-10 17:30 | NUR ---
PT REFUSED MEDS. RISKS AND BENEFITS EXPLAINED. PT VERBALIZED PARTIAL UNDERSTANDING.
--- NOTE | 2016-10-10 19:02 | NUR ---
PT AWAKE. WATCHING TV. NO SOB NOTED. NO COMPLAINTS MADE. WILL ENDORSE TO NEXT SHIFT NURSE FOR CONTINUITY OF CARE.
--- NOTE | 2016-10-10 19:30 | NUR ---
RECEIVED FROM AM RN IN BED AWAKE . ABLE TO VERBALIZE SIMPLE NEEDS. SITTER 1:1. FEBRILE. CALL LIGHT WITH IN REACH. CARE PLANS FOR THE NIGHT DISCUSSED WITH HER. ALERT WITH DISORIENTATION AT TIMES. DX. OF ACUTE PSYCHOSIS.
--- NOTE | 2016-10-10 21:17 | NUR ---
PT. TOOK ALL P.O. MEDICATIONS FOR ME. GOOD AFFECT. PROVIDED WITH SANDWICH AND COFFEE REQUESTED . SITTER 1:1.
--- NOTE | 2016-10-10 23:49 | NUR ---
SLEEPING AT THIS TIME. NO RESTLESSNESS . SITTER :1 ON 1.
[2016-10-11] VITALS: BP 114/62
--- NOTE | 2016-10-11 02:11 | NUR ---
PT. SLEEPING . NO RESTLESSNESS. SITTER 1:1.
[2016-10-11] MEDS: ACETAMINOPHEN 325 MG TAB PO PRN (02:59)
--- NOTE | 2016-10-11 03:09 | NUR ---
WOKE UP AT THIS TIME AND REQUESTED FOR PAIN RELIEVER RT HEADACHE. MEDICATED ORDERED. NOFURTHER COMPLAINTS .
[2016-10-11] MEDS: LEVOTHYROXINE 0.025 MG TAB PO SCH (06:13)
--- NOTE | 2016-10-11 06:35 | NUR ---
AWAKE AT THIS TIME. REQUESTED FOR A CUP OF COFFEE. P.O. MEDICATION FOR A.M. TAKEN. NO UNTOWARD INCIDENT THIS SHIFT. SITTER 1:1.
--- NOTE | 2016-10-11 07:27 | NUR ---
ENDORSED TO THE AM RN FOR CONTINUITY OF CARE. AWAKE AND ALERT . SITTING IN BED. NO COMPLAINTS DONE.
[2016-10-11 08:00] VITALS: BP 113/64
[2016-10-11] MEDS ORDERED: FERROUS GLUCONATE 324 MG TAB PO SCH (08:00)
[2016-10-11] MEDS: ASCORBIC ACID 500 MG TAB PO SCH (08:30)
[2016-10-11] MEDS: GABAPENTIN 100 MG CAP PO SCH ×2 (08:30→12:30)
--- NOTE | 2016-10-11 08:30 | NUR ---
PT FINISHED HER BREAKFAST IN BED. PT IS CALM AND COOPERATIVE WITH MORNING MEDICATIONS. WILL CONTINUE TO MONITOR.
[2016-10-11] MEDS: LEVOFLOXACIN 250 MG TAB PO SCH (08:31)
[2016-10-11] MEDS: LITHIUM CARBONATE 300 MG TAB PO SCH (08:31)
[2016-10-11] MEDS: risperiDONE 1 MG TAB PO SCH (08:32)
[2016-10-11] MEDS: QUEtiapine FUMARATE 100 MG TAB PO SCH (08:32)
[2016-10-11] MEDS: ATORVASTATIN 20 MG TAB PO SCH (08:32)
--- NOTE | 2016-10-11 09:35 | NUR ---
SS NOTE: PER EMANUEL FROM [facility], PT HAS BEEN DECLINED DUE TO DIFFICULTY OF PLACEMENT AND PT IS OUT OF THEIR AREA RADIUS. I REQUESTED TO HAVE THEIR SALES AND SERVICE OFFICER CALL ME TO OBTAIN ADDITIONAL INFORMATION REGARDING THE REASONS THAT THEY ARE DECLINING PT.
--- NOTE | 2016-10-11 11:00 | NUR ---
PT RESTING IN BED. SITTER AT BEDSIDE. WILL CONTINUE TO MONITOR.
--- NOTE | 2016-10-11 12:30 | NUR ---
SS NOTE: I RECEIVED A MESSAGE FROM [facility] DEPT. OF MENTAL HEALTH REP FOR [facility] (PT'S PREVIOUS RESIDENCE). SHE STATED THAT THEY HAVE CONTACTED [facility] IN [place] FOR PLACEMENT FOR PT. I SPOKE WITH SANTOSH FROM [facility] (C: [phone]) AND SHE REQUESTED TO HAVE PT'S INFORMATION SENT OVER TO THEM (F: [phone]). SENT OVER REQUESTED INFORMATION, FAX CONFIRMATION RECEIVED
--- NOTE | 2016-10-11 12:30 | NUR ---
PT TOOK GABAPENTIN. SITTER AT BEDSIDE. WILL CONTINUE TO MONITOR.
--- NOTE | 2016-10-11 12:57 | NUR ---
FAXED CONCURRENT REVIEW TO [facility] [phone] PHONE [phone]
--- NOTE | 2016-10-11 14:00 | NUR ---
SPOKE WITH BERTA AT [facility]. ASKED ABOUT MEDS SHE IS CURRENTLY TAKING. ASKED ABOUT HER DEMEANOR. GAVE REPORT. PT IS STABLE. PT IS CALM AND COOPERATIVE. TAKES MEDS WELL. REFERRED BERTA TO [facility].
--- NOTE | 2016-10-11 14:09 | NUR ---
SS NOTE: I RECEIVED A CALL FROM BERTA AT [facility] IN [place]. HE STATED THAT THEY WILL NEED A NEW 51/50 HOLD IN ORDER TO ACCEPT PT. HE ALSO STATED THAT ONCE THE HOLD IS WRITTEN AND SENT TO THEM, HE WILL PROVIDE US WITH THE ACCEPTING PHYSICIAN AND ROOM INFORMATION.
--- NOTE | 2016-10-11 14:20 | NUR ---
PAGED DR. FLOYD FOR RE-EVALUATION OF 5150 HOLD. AWAITING FOR CALL BACK.
--- NOTE | 2016-10-11 14:53 | NUR ---
DR. CRAIG CALLED BACK AND NOTIFIED REGARDING RE-EVALUATION OF 5150 HOLD. STATED HE WILL COME AND SEE PT TODAY.
--- NOTE | 2016-10-11 16:00 | NUR ---
PT REFUSED VS.
--- NOTE | 2016-10-11 16:01 | NUR ---
SS NOTE: SENT A COPY OF PT'S NEW HOLD TO [facility], RECEIVED FAX CONFIRMATION I SPOKE WITH NURSE JOSE FROM [facility]. SHE STATED THAT PT CAN GO TO ROOM 301C AND OUR RN CAN CALL REPORT TO HER AT [phone].
--- NOTE | 2016-10-11 16:09 | NUR ---
SPOKE TO JIGAR GARCIA AT [facility] @ [phone]. SHE IS GOING TO ROOM 301C. PER CHARGE NURSE, [facility] WILL HERE TO PICK HER UP IN 45 MIN. WE WILL HAVE PT READY.
--- NOTE | 2016-10-11 16:13 | NUR ---
SET UP [facility]SPORT FOR 4:45PM TO 5P.M. TODAY.
--- NOTE | 2016-10-11 16:46 | NUR ---
PT WHEELED OUT ON [facility] WITH 2 TRANSPORTERS. PT UNABLE TO SIGN D/C PAPERS. GAVE REPORT TO [facility]. CALLED JOSE AT [facility] TO NOTIFY HER THAT PT IS ON HER WAY.
== END 2016-10-11 16:46 | DRG 52 ==
LOC: MED 10:15 → MIC 15:21 → MTU 10-07 15:50
PROVIDERS: ADMIT Student in an Organized Health Care Education/Training Program; ATTEND Student in an Organized Health Care Education/Training Program
DX: G92 Toxic encephalopathy (principal); R45.851 Suicidal ideations; N39.0 Urinary tract infection, site not specified; F12.20 Cannabis dependence, uncomplicated; F15.20 Other stimulant dependence, uncomplicated; F25.0 Schizoaffective disorder, bipolar type; E87.6 Hypokalemia; F17.210 Nicotine dependence, cigarettes, uncomplicated; F31.9 Bipolar disorder, unspecified; E78.5 Hyperlipidemia, unspecified; G62.9 Polyneuropathy, unspecified; D53.9 Nutritional anemia, unspecified; E83.42 Hypomagnesemia; E03.9 Hypothyroidism, unspecified; F79 Unspecified intellectual disabilities; F23 Brief psychotic disorder; Z59.0 Homelessness; Z91.14 Patient's other noncompliance with medication regimen; Z91.5 Personal history of self-harm; Z86.19 Personal history of other infectious and parasitic diseases